=== PATIENT | male | born 1970 | race Caucasian/White ===

== ENCOUNTER 2016-10-13 08:23 | Emergency (ER) | payer OTHER ==
[~2016-10-13] VITALS: Ht 182.9 cm; Wt 102.0 kg
[~2016-10-13 08:23] MED LIST: CLIN1CAP5 PO; HYDR-3533 PO; IBUP800T23 PO; MAGICADU2 SWISH-SWAL
[2016-10-13 08:24] VITALS: BP 123/78; PULSE 68; RESP 24; TEMP 98; O2SAT 98
[2016-10-13 08:31] VITALS: BP 166/94; PULSE 74; RESP 18; TEMP 98.4; O2SAT 99
--- NOTE | 2016-10-13 08:40 | PD ---
HPI Chief Complaint: Flank/Kidney Pain Time Seen by Provider: 08:33 Travel History International Travel<30 days: No Contact w/Intl Traveler<30days: No Traveled to known affect area: No History of Present Illness HPI This is a 46-year-old male who presents to the emergency department with a history of bilateral obstructing kidney stones and stent placement over the summer, with right sided flank pain that's been progressing over the past 3 days. He said initially it felt like a twinge and then today when he went to work and started to be a sharp stabbing pain feeling like someone was stabbing him with an ice pick in the back, radiating to the right upper abdomen, constant , severe associated with nausea. He has not vomited. He says he feels flushed and some chills. He says he followed up with his urologist after his procedure but hasn't seen him since then. He says that over the past several days his urine has been increasingly bloody. PFSH Past Medical History Heart Rhythm Problems: No Cancer: No Cardiovascular Problems: No High Cholesterol: No Chest Pain: No Congestive Heart Failure: No Endocrine: No Gastrointestinal Disorders: No GERD: Yes Genitourinary: Yes (HX OF KIDNEY STONE 2007) Hepatitis: No Hiatal Hernia: No Hypertension: No Immune Disorder: No Kidney Stones: Yes Medical other: No Musculoskeletal: No Neurologic: No Psychiatric: No Reproductive: No Respiratory: No Seizures: No Ulcer: No ?: Not Past Surgical History Abdominal Surgery: No AICD: No Body Medical Devices: NONE Cardiac Surgery: No Ear Surgery: No Endocrine Surgery: No Eye Surgery: No Genitourinary Surgery: No Gynecologic Surgery: No Joint Replacement: No Neurologic Surgery: No Oral Surgery: No Pacemaker: No Thoracic Surgery: No Other Surgery: Yes (STENTS IN KIDNEY in march 2016) Social History Alcohol Use: Yes (on occasion) Tobacco Use: No Substance Use: Yes (admits to used to use drugs in youth) Allergies-Medications (Allergen,Severity, Reaction): Coded Allergies: Penicillin (Verified Allergy, Severe, 09/16/16) UNKNOWN REACTION Reported Meds & Prescriptions Reported Meds & Active Scripts Active Lortab (Hydrocodone-Acetaminophen) 5-325 Mg Tab 1 Tab PO Q6H PRN Ibuprofen 800 Mg Tab 800 Mg PO Q8H PRN Magic Mouthwash Adult Liq (Multi-Ingredient Mouthwash/Gargle) 120 Ml Susp 5 Ml SWISH-SWAL ACHS Each 5 mL contains: Nystatin 200,000 units, Diphenhydramine 4.25 mg, Viscous Lidocaine 10 mg, Pinedo syrup 0.8 mL Clindamycin (Clindamycin HCl) 150 Mg Cap 300 Mg PO Q6H 10 Days Review of Systems Except as stated in HPI: all other systems reviewed are Neg Physical Exam Narrative GENERAL: Uncomfortable appearing. SKIN: Warm and dry. HEAD: Atraumatic. Normocephalic. EYES: Pupils equal and round. No injection or drainage. ENT: Moist mucous membranes NECK: Trachea midline. CARDIOVASCULAR: Regular rate and rhythm. No murmur appreciated. RESPIRATORY: Clear to auscultation. Breath sounds equal bilaterally. GASTROINTESTINAL: Abdomen soft, non-tender, nondistended. : Right CVA tenderness. MUSCULOSKELETAL: No obvious deformities. NEUROLOGICAL: Awake and alert. No obvious cranial nerve deficits. Moving all extremities. PSYCHIATRIC: Appropriate mood and affect; insight and judgment normal. Data Data Last Documented VS Vital Signs Date Time Temp Pulse Resp B/P Pulse Ox O2 Delivery O2 Flow Rate FiO2 10/13/16 08:49 18 98 Room Air 10/13/16 08:34 71 10/13/16 08:31 98.4 166/94 Orders Basic Metabolic Panel (Bmp) (10/13/16 08:37) Complete Blood Count With Diff (10/13/16 08:37) Urinalysis - C+S If Indicated (10/13/16 08:37) Ct Abd/Pel W/O Iv Contrast (10/13/16 08:37) Iv Access Insert/Monitor (10/13/16 08:37) Ecg Monitoring (10/13/16 08:37) Oximetry (10/13/16 08:37) Sodium Chloride 0.9% Flush (Ns Flush) (10/13/16 08:45) Ketorolac Inj (Toradol Inj) (10/13/16 08:45) Hydromorphone Pf Inj (Dilaudid Pf Inj) (10/13/16 08:45) Ondansetron Inj (Zofran Inj) (10/13/16 08:45) Sodium Chlor 0.9% 1000 Ml Inj (Ns 1000 M (10/13/16 08:45) Urine Culture (10/13/16 08:50) Hydromorphone Pf Inj (Dilaudid Pf Inj) (10/13/16 10:00) Labs Laboratory Tests Test 10/13/16 10/13/16 08:40 08:50 Sodium Level 137 MEQ/L Potassium Level 4.3 MEQ/L Chloride Level 103 MEQ/L Carbon Dioxide Level 25.3 MEQ/L Anion Gap 9 MEQ/L Blood Urea Nitrogen 28 MG/DL Creatinine 1.26 MG/DL Estimat Glomerular Filtration 62 ML/MIN Rate Random Glucose 113 MG/DL Calcium Level 9.0 MG/DL White Blood Count 9.4 TH/MM3 Red Blood Count 5.24 MIL/MM3 Hemoglobin 15.2 GM/DL Hematocrit 45.1 % Mean Corpuscular Volume 86.0 FL Mean Corpuscular Hemoglobin 28.9 PG Mean Corpuscular Hemoglobin 33.7 % Concent Red Cell Distribution Width 14.3 % Platelet Count 200 TH/MM3 Mean Platelet Volume 11.0 FL Neutrophils (%) (Auto) 69.5 % Lymphocytes (%) (Auto) 19.0 % Monocytes (%) (Auto) 7.5 % Eosinophils (%) (Auto) 3.0 % Basophils (%) (Auto) 1.0 % Neutrophils # (Auto) 6.5 TH/MM3 Lymphocytes # (Auto) 1.8 TH/MM3 Monocytes # (Auto) 0.7 TH/MM3 Eosinophils # (Auto) 0.3 TH/MM3 Basophils # (Auto) 0.1 TH/MM3 CBC Comment DIFF FINAL Differential Comment Urine Color YELLOW Urine Turbidity HAZY Urine pH 6.0 Urine Specific [place] 1.020 Urine Protein 100 mg/dL Urine Glucose (UA) NEG mg/dL Urine Ketones NEG mg/dL Urine Occult Blood MOD Urine Nitrite NEG Urine Bilirubin NEG Urine Urobilinogen LESS THAN 2.0 MG/DL Urine Leukocyte Esterase LARGE Urine RBC /hpf Urine WBC 57 /hpf Urine Amorphous Sediment RARE Urine Bacteria RARE /hpf Urine Mucus FEW /lpf Microscopic Urinalysis Comment CULTURE INDICATED MDM Medical Decision Making Medical Screen Exam Complete: Yes Emergency Medical Condition: Yes Medical Record Reviewed: Yes (patient had bilateral ureteral stents placed in [place] [address] Howell) Interpretation(s) No leukocytosis Electrolytes are reassuring Urinalysis: Blood in the urine Differential Diagnosis Nephrolithiasis, pyelonephritis, obstructive uropathy, infected stone Narrative Course This is a 46-year-old male who presents to the emergency department with a history kidney stones and bilateral ureteral stents with increasing right sided flank pain. He was placed on a monitor and an IV was established. He was given IV hydration and pain control. CT was obtained which demonstrates persistent stents. I spoke to Dr. Howell to doesn't feel like there is any urologic emergency but does want the patient to follow-up in his office within 1 -2 weeks for further care. I explained this to the patient and he expressed understanding. Patient was discharged home. Diagnosis Primary Impression: Nephrolithiasis Referrals: Dwight Howell DO Patient Instructions: General Instructions Additional Instructions: If you develop fever, persistent vomiting, back pain, or inability to eat return to the emergency department as your urine infection may have progressed to a kidney infection. Follow-up with Dr. Howell without fail. Med/Other Pt SpecificInfo: Prescription(s) given Scripts Oxycodone-Acetaminophen (Percocet)5-325 mg Tab1-2 Tab PO Q4H PRN (PAIN) #30 TAB Ref 0 Prov:Marina Robertson MD 10/13/16 Disposition: 01 DISCHARGE HOME Condition: Stable Marina Robertson MD Oct 13, 2016 08:40
[2016-10-13] MEDS ORDERED: ONDANSETRON HCL 4 MG/2 ML VIAL IV ONE (08:45)
[2016-10-13] MEDS ORDERED: HYDROmorphone HCL PF 1 MG/ML VIAL IVS ONE (08:45)
[2016-10-13] MEDS ORDERED: KETOROLAC TROMETHAMINE 30 MG/ML (IVP) VIAL IVP ONE (08:45)
[2016-10-13] MEDS ORDERED: SODIUM CHLORIDE 0.9% FLUSH 5 ML FLUSH IVF PRN (08:45)
[2016-10-13] MEDS ORDERED: SODIUM CHLOR 0.9% 1000 ML INJ 1,000 ML IV SCH (08:45)
[2016-10-13 08:49] VITALS: RESP 18; O2SAT 98
[2016-10-13 09:07] LABS: AUTOMATED NEUTROPHIL # 6.5 TH/MM3 (1.8-7.7); BASOPHIL # 0.1 TH/MM3 (0-0.2); EOSINOPHIL # 0.3 TH/MM3 (0-0.4); HEMATOCRIT 45.1 % (39.0-51.0); HEMO FLAGS DIFF FINAL; LYMPHOCYTE # 1.8 TH/MM3 (1.0-4.8); MEAN CORPUSCULAR HEMOGLOBIN 28.9 PG (27.0-34.0); MEAN CORPUSCULAR HGB CONC 33.7 % (32.0-36.0); MONO % 7.5 % (0.0-8.0); NEUT % 69.5 % (16.0-70.0); PLATELET COUNT 200 TH/MM3 (150-450); RED BLOOD COUNT 5.24 MIL/MM3 (4.50-5.90); RED CELL DISTRIBUTION WIDTH 14.3 % (11.6-17.2); WHITE BLOOD COUNT 9.4 TH/MM3 (4.0-11.0)
[2016-10-13 09:18] LABS: BACTERIA, URINE RARE /hpf; BLOOD, URINE MOD (NEG); GLUCOSE,URINE NEG (NEG); KETONE, URINE NEG (NEG); MUCUS URINE FEW /lpf (OCC); NITRITE,URINE NEG (NEG); URINE COLOR YELLOW (YELLW/STRAW)
--- NOTE | 2016-10-13 09:29 | RADRPT ---
EXAM DATE/TIME: 10/13/2016 08:52 [facility] COMPARISON: CT ABDOMEN & PELVIS W/O CONTRAST, April 23, 2016, 19:28. INDICATIONS: Right flank pain. ORAL CONTRAST: No oral contrast ingested. RADIATION DOSE: 8.55 CTDIvol (mGy) MEDICAL HISTORY: Renal calculi. Gastroesophageal reflux disease. SURGICAL HISTORY: None. ENCOUNTER: Initial ACUITY: 2 days PAIN SCALE: 9/10 LOCATION: Right flank TECHNIQUE: Volumetric scanning of the abdomen and pelvis was performed. Using automated exposure control and ad justment of the mA and/or kV according to patient size, radiation dose was kept as low as reasonably achievable to obtain optimal diagnostic quality images. FINDINGS: Lungs bases are clear. Portion of the liver and spleen identified are free of focal defects. Bilateral double J stents are in place. Both collecting systems remain prominent in spite of the king nt. Calcifications are seen in both the right and left kidneys, unchanged. Double J stents are in good position in the bladder. CONCLUSION: 1. Double J stents in good position. 2. Bilateral renal calculi. 3. Parapevlic cyst. Kirby Chinchilla MD FACR on October 13, 2016 at 9:02 Board Certified Radiologist. This report was verified electronically.
[2016-10-13 09:34] LABS: COMMENT (UR) CULTURE INDICATED; CULTURE IF INDICATED CULTURE INDICATED
[2016-10-13 09:37] LABS: BICARBONATE 25.3 MEQ/L (21.0-32.0); POTASSIUM 4.3 MEQ/L (3.5-5.1)
[2016-10-13] MEDS ORDERED: HYDROmorphone HCL PF 1 MG/ML VIAL IV PUSH ONE (10:00)
[2016-10-13] MEDS ORDERED: PERC5TAB12 PO (10:39)
[2016-10-13 10:54] VITALS: BP 146/77; TEMP 98.6
[2016-10-22] MEDS ORDERED: PERC7.5T13 PO (11:07)
[2016-11-05] MEDS ORDERED: NORC5TAB PO (11:55)
[2016-11-05] MEDS ORDERED: LEVA500T PO (11:55)
[2016-12-08] MEDS ORDERED: PERC10TA27 PO (14:20)
[2016-12-08] MEDS ORDERED: OXYB5TAB10 PO (14:20)
[2017-01-13] MEDS ORDERED: MULTTAB67 PO (09:56)
== END 2016-10-13 10:45 | disposition home or self-care (01) ==
LOC: NEPE 08:23
DX: N20.0 Calculus of kidney (principal); R11.0 Nausea; K21.9 Gastro-esophageal reflux disease without esophagitis
CPT/HCPCS: 74176; 80048; 81001; 85025; 87086; 96374; 96375; 96376; 99284; J1170; J1885; J2405; J7030

== ENCOUNTER 2016-10-18 11:41 | Emergency (ER) | payer SELFPAY ==
[~2016-10-18] VITALS: Ht 182.9 cm; Wt 102.0 kg
[~2016-10-18 11:41] MED LIST changes: +PERC5TAB12 PO
[2016-10-18 11:43] VITALS: BP 128/94; PULSE 70; RESP 20; TEMP 98; O2SAT 97
[2016-10-18] MEDS ORDERED: ORPHENADRINE INJ 60 MG/2 ML AMP IM ONE (13:45)
[2016-10-18] MEDS ORDERED: KETOROLAC TROMETHAMINE 60 MG/2 ML (IM) VIAL IM ONE (13:45)
--- NOTE | 2016-10-18 13:45 | PD ---
HPI Chief Complaint: Pain: Acute or Chronic Time Seen by Provider: 13:40 Travel History International Travel<30 days: No Contact w/Intl Traveler<30days: No Traveled to known affect area: No History of Present Illness HPI Patient is a 46-year-old male presenting with back pain. He states approximately 2 hours prior to exam. He was at work when he twisted and bent and felt a popping sensation in his right lower back. It is sharp and worse with movement. It does not radiate. It is near the midline and around the lumbosacral area. Patient denies any flank or abdominal pain. He denies bowel or bladder dysfunction, saddle anesthesia and weakness or paresthesias in his lower extremities. He states that he has had intermittent back problems since July 2016 and has seen an orthopedist in follow-up, MRI has shown only muscle strains and no other acute injuries. He denies any trauma to the back however states that the pain was so severe he did "fall to the ground "it took him a moment or 2 to get back up. He was here 5 days prior for flank pain which was related to renal calculi and he an appointment this week with his urologist. He states that this has improved and that this pain is different and he does not believe it is related. Denies any urinary complaints. PFSH Past Medical History Heart Rhythm Problems: No Cancer: No Cardiovascular Problems: No High Cholesterol: No Chest Pain: No Congestive Heart Failure: No Endocrine: No Gastrointestinal Disorders: No GERD: Yes Genitourinary: Yes (HX OF KIDNEY STONE 2007) Hepatitis: No Hiatal Hernia: No Hypertension: No Immune Disorder: No Kidney Stones: Yes Musculoskeletal: No Neurologic: No Psychiatric: No Reproductive: No Respiratory: No Seizures: No Ulcer: No Past Surgical History Abdominal Surgery: No AICD: No Body Medical Devices: NONE Cardiac Surgery: No Ear Surgery: No Endocrine Surgery: No Eye Surgery: No Genitourinary Surgery: No Gynecologic Surgery: No Joint Replacement: No Neurologic Surgery: No Oral Surgery: No Pacemaker: No Thoracic Surgery: No Other Surgery: Yes (STENTS IN KIDNEY in march 2016) Social History Alcohol Use: Yes (on occasion) Tobacco Use: No Substance Use: Yes (admits to used to use drugs in youth) Allergies-Medications (Allergen,Severity, Reaction): Coded Allergies: Penicillin (Verified Allergy, Severe, 10/18/16) UNKNOWN REACTION Reported Meds & Prescriptions Reported Meds & Active Scripts Active Robaxin (Methocarbamol) 750 Mg Tab 750 Mg PO QID PRN 2 tabs QID for 2 days, then 1 tab QID thereafter Naproxen 500 Mg Tab 500 Mg PO BID Review of Systems Except as stated in HPI: all other systems reviewed are Neg Physical Exam Narrative GENERAL: Well-developed and well-nourished adult male in no acute distress. SKIN: Warm and dry. Good turgor without tenting. HEAD: Normocephalic and atraumatic. EYES: PERRL bilaterally, 5mm. EOMI bilaterally. No injection or icterus present. No proptosis. Lids without edema or erythema. NECK: Supple, no midline tenderness, crepitus or step-offs. Trachea midline, no JVD. No cervical or facial lymphadenopathy. CARDIOVASCULAR: Regular rate and rhythm without murmurs, rubs, clicks or gallops. Dorsalis pedis and posterior tibial pulses 2+ bilaterally. No pedal edema. RESPIRATORY: Clear to auscultation bilaterally with symmetrical rise and fall, no distress or use of accessory muscles. GASTROINTESTINAL: Non-tender, non-distended. Normal bowel sounds all 4 quadrants. No masses or organomegaly present. MUSCULOSKELETAL: Gross exam of the back reveals no edema or discoloration. Patient has tenderness to palpation of the mid to low lumbar region and the sacrum and right sacroiliac paraspinous muscles. There are no crepitus or step- offs. No pelvic instability or pain with pelvic rocking. Negative bilateral modified straight leg raise. Antalgic gait. Patient freely moving all four extremities spontaneously. Extremities without clubbing, cyanosis, or edema. No obvious deformities. NEUROLOGIC: CN II-XII grossly intact. Awake and alert. Sensation intact L1-S2 bilaterally. Strength 5/5 in hip flexion, hip extension, knee flexion, knee extension, plantar flexion, dorsiflexion, and great toe flexion and extension bilaterally. Bilateral patellar and Achilles DTRs 1+. Downgoing Babinskis bilaterally. Normal speech. PSYCHIATRIC: Appropriate mood and affect; insight and judgment normal. Data Data Last Documented VS Vital Signs Date Time Temp Pulse Resp B/P Pulse Ox O2 Delivery O2 Flow Rate FiO2 10/18/16 11:43 98.0 70 20 128/94 97 Room Air Orders Ketorolac Inj (Toradol Inj) (10/18/16 13:45) Orphenadrine Inj (Norflex Inj) (10/18/16 13:45) Spine, Lumbar - Ltd (Ap & Lat) (10/18/16 13:40) MDM Medical Decision Making Medical Screen Exam Complete: Yes Emergency Medical Condition: Yes Differential Diagnosis Lumbar strain versus muscle spasm versus SI dysfunction versus lumbar fracture Narrative Course The patient is a 46-year-old male who has had intermittent chronic back pain since 2016. 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 It is also tender over muscular regions but does have some bony tenderness, no crepitus, step-offs, edema or discoloration. He has no "red flag "symptoms and is neurovascularly intact. I believe this most likely represents a lumbar strain with spasm, patient given Toradol and Norflex and ordered x-ray of the lumbar spine. Of note he was seen here 5 days prior for renal calculi with stents in place. He states that that pain has resolved and this tight is different and he does not believe it is related. He denies any urinary problems. He has follow-up with his urologist this week. X-ray of the lumbar spine shows no acute fractures, subluxations. There are some chronic findings including the ureteral stents. Patient feeling somewhat improved. Will be discharged with anti-inflammatories and muscle relaxers, rest and follow -up with his orthopedist this week.See discharge paperwork for further instructions. The plan was discussed with the patient who acknowledged their understanding and agreement. Reinforced the follow-up with primary care is critically important. Patient instructed on emergent conditions that should prompt return to ED. Diagnosis Primary Impression: Low back strain Qualified Code: S39.012A - Low back strain, initial encounter Patient Instructions: General Instructions, Low Back Strain (ED) Additional Instructions: Rest for 24 hours, then gradually resume normal activity Avoid maneuvers or positions that aggravate the pain Avoid twisting/bending or lifting heavy items Take medications as prescribed Warm, moist heat applied to painful areas hourly as needed Try to massage and stretch affected muscles after applying heat to speed recovery Follow-up with your orthopedist on Thursday Return to ED for any acute worsening of symptoms Med/Other Pt SpecificInfo: Prescription(s) given Scripts Methocarbamol (Robaxin)750 Mg Ubi134 Mg PO QID PRN (MUSCLE SPASM) #40 TAB 2 tabs QID for 2 days, then 1 tab QID thereafter Prov:Jt Wesley MD 10/18/16 Naproxen 500 Mg Aop155 Mg PO BID #10 TAB Prov:Jt Wesley MD 10/18/16 Disposition: 01 DISCHARGE HOME Condition: Stable Dewayne Kenney III Oct 18, 2016 13:45
--- NOTE | 2016-10-18 14:40 | RADRPT ---
EXAM DATE/TIME: 10/18/2016 14:17 [facility] COMPARISON: No previous studies available for comparison. INDICATIONS : Pain since July, exaggerated 1 day ago. MEDICAL HISTORY : None. SURGICAL HISTORY : None. ENCOUNTER: Initial ACUITY: 2 months PAIN SCORE: 7/10 LOCATION: Lumbar spine. FINDINGS: 3 views of the lumbar spine demonstrate 5 bip-bal-pbowwtp lumbar vertebral bodies. No fracture or com pression deformity is present. There is no anterolisthesis or retrolisthesis. Endplate osteophytes ar e present at L2-L4. Disc heights are preserved. Bilateral ureteral stents are present and there are likely proximal ureteral stones bilaterally. CONCLUSION: 1. No significant lumbar spine abnormality is identified. 2. Bilateral ureteral stents are present with suspected proximal ureteral stones bilaterally. Dewayne Arce MD on October 18, 2016 at 14:38 Board Certified Radiologist. This report was verified electronically.
[2016-10-18] MEDS ORDERED: ROBA750T PO (14:45)
[2016-10-18] MEDS ORDERED: NAPR500T PO (14:45)
[2016-10-22] MEDS ORDERED: PERC7.5T13 PO (11:07)
[2016-11-05] MEDS ORDERED: LEVA500T PO (11:55)
[2016-11-05] MEDS ORDERED: NORC5TAB PO (11:55)
[2016-12-08] MEDS ORDERED: OXYB5TAB10 PO (14:20)
[2016-12-08] MEDS ORDERED: PERC10TA27 PO (14:20)
[2017-01-13] MEDS ORDERED: MULTTAB67 PO (09:56)
== END 2016-10-18 15:11 | disposition home or self-care (01) ==
LOC: NEPB 11:41
DX: S39.012A Strain of muscle, fascia and tendon of lower back, initial encounter (principal); X50.1XXA Overexertion from prolonged static or awkward postures, initial encounter; Y99.0 Civilian activity done for income or pay
CPT/HCPCS: 72100; 96372; 99283; J1885; J2360

== ENCOUNTER → 2016-11-05 | Day surgery (SDC) | payer OTHER ==
[~2016-11-05] VITALS: Ht 180.3 cm; Wt 106.4 kg
[~2016-11-05] MED LIST changes: +*morphine SULFATE 8 MG/ML PERIprocedure ONLY ONE; +ACETAMINOPHEN 1000 MG/100 ML VIAL IV ONE; +BELLADONNA ALKALOIDS/OPIUM 60 MG SUPP ONE; +CIPR-9 PO; -CLIN1CAP5 PO; +DEXAMETHASONE SOD PHOS 4 MG/ML VIAL ONE; +DO NOT ADM ANY ANTICOAGULANT DRUGS XX PRN; +FAMOTIDINE 20 MG/2 ML VIAL ONE; +HYDR-3366 PO; -HYDR-3533 PO; -IBUP800T23 PO; +INSULIN HUMAN REGULAR 1,000 UNITS/10 ML VIAL SQ PRN; +IOHEXOL 300 MG/ML 50 ML BTL (for RAD DIAG) OTHER ONE; +KETOROLAC TROMETHAMINE 30 MG/ML (IVP) VIAL ONE; +LACTATED RINGER'S 1000 ML IV SCH; +LEVA500T PO; +LEVOFLOXACIN 500 MG TAB PO ONE; -MAGICADU2 SWISH-SWAL; +METOPROLOL TARTRATE 25 MG TAB PO PRN; +MIDAZOLAM HCL 2 MG/2 ML VIAL ONE; +MULTTAB67 PO; +NORC5TAB PO; +ONDANSETRON HCL 4 MG/2 ML VIAL IV PUSH PRN; +ONDANSETRON HCL 4 MG/2 ML VIAL ONE; +OXYB5TAB10 PO; +PERC10TA27 PO; +PROPOFOL 200 MG/20 ML AMP IV ONE; +ROBA500T PO; +SODIUM CHLORID 0.9% 500 ML IV SCH; +fentaNYL CITRATE 250 MCG/5 ML AMP ONE; +oxyCODONE/ACETAMINOPHEN 5 MG/325 MG TAB PO PRN
[2016-11-05 06:27] VITALS: BP 135/77; PULSE 62; RESP 18; TEMP 98.4; O2SAT 96
--- NOTE | 2016-11-05 07:21 | RADRPT ---
EXAM DATE/TIME: 11/05/2016 06:43 [facility] COMPARISON: No previous studies available for comparison. INDICATIONS : Stones and stents. Pre-op. MEDICAL HISTORY : Kidney stones SURGICAL HISTORY : Bilateral stents ENCOUNTER: Initial ACUITY: 1 day PAIN SCORE: 7/10 LOCATION: Bilateral abdomen FINDINGS: Supine view of the abdomen was performed. The abdominal bowel gas pattern is normal. Bilateral doubl e-J ureteral catheters are identified. Large calcification overlying both proximal ureter. On the lef t calcification measures 8 x 12 mm. On the right it measures 8 x 4 mm . No abnormal masses, or orga nomegaly is seen. The osseous structures are unremarkable. CONCLUSION: Bilateral double-J ureteral catheters with bilateral proximal ureter calcifications as measured above Aaron Hawkins MD on November 05, 2016 at 7:18 Board Certified Radiologist. This report was verified electronically.
--- NOTE | 2016-11-05 11:53 | HHI.PR ---
Immediate Post Op Note Procedure Date: Nov 05, 2016 Pre Op Diagnosis: Bilateral renal calculi Post Op Diagnosis: Same Surgeon: Juancho Stockton Foundation Engineer(s): None Procedure: Cystoscopy, bilateral retrograde pyelograms, bilateral ureteral stent exchange and bilateral extracorporeal shockwave lithotripsy Findings: Bilateral renal calculi and retained urinary stents Additional Information: Indication for procedure: Case of a pleasant 46-year-old gentleman with a history of bilateral obstructing renal calculi who is status post placement of bilateral ureteral stents in March 2016. Patient presents today to have his bilateral ureteral stents exchanged and to undergo shockwave lithotripsy of the larger left sided renal calculus. Procedure in detail: Patient was brought to the operating room suite and placed supine on the lithotripsy table. He was next placed under general anesthesia. He was then repositioned in the dorsal lithotomy position and prepped and draped in normal sterile fashion. After appropriate timeout was undertaken I proceeded with cystoscopic evaluation utilizing the rigid cystoscope with the 20 Beninese sheath and 30 lens. The urethra was patent without stricture formation and the prostate was nonobstructing. Further passes of cystoscope within the urinary bladder revealed both distal aspects of the previously seen ureteral stents protruding from the ureteral orifices. Next the right stent was grasped with flexible forceps and an attempt was made to remove it. I was able to mobilize the stent several centimeters and met considerable resistance. A sensor 0.035 wire was advanced alongside the stent to stabilize the ureter. However the stent was unable to be further withdrawn nor was able to push it back up into the right kidney. I then focused my attention towards removing the left stent and once again had similar problems. However the able to pass a sensor wire up the left ureter and subsequently withdraw the left stent several centimeters however significant resistance was met that precluded removal. The patient was next taken out of dorsolithotomy position and placed in the supine position. I then proceeded with shockwave lithotripsy of the proximal loop of the left ureteral stent utilizing the Jaimes Piezolith 3000 device. 500 shocks were administered to the loop and then an additional 1000 shocks to the left stone which appeared adherent to the ureteral stent. Cystoscopy was then repeated utilizing the flexible cystoscope and this time I was able to grasp and remove the left stent without difficulty. The stent was carefully inspected to ascertain that no stone fragments were left behind. Subsequent to this shockwave lithotripsy was resumed and an additional 1500 shocks were administered to the left sided renal calculus. Next the focus of attention was towards the patient's right side. Since the right stent could not be removed and was now in poor position a decision was made to proceed with shockwave lithotripsy of the proximal loop of the right stent and right renal calculus which appeared adherent to the stent. The patient once again received 1500 shocks to both the stone and the loop and flexible cystoscopy was repeated. Once again I was successful in removing the right sided ureteral stent which was carefully inspected to ascertain that no stent fragments were left behind. Subsequent to this additional 1500 shocks to the right stone was administered with the shockwave lithotripsy machine. This concluded the shockwave lithotripsy portion of the case and both renal stones still remained intact although somewhat risk consultant in intensity. The patient was then once again repositioned in the dorsolithotomy position and reprepped and draped. I then proceeded with placement of bilateral terminal operations supervisor ureteral stents as follows. The previously pass guidewires were still in place and I proceeded to back loaded the cystoscope over the wire utilizing a 5 Beninese open-ended catheter. The catheter was then advanced proximal two th[address] way up the patient's right ureter and the guidewire withdrawn. A right retrograde pyelogram study was performed to outline the collecting system. Next.an open-ended catheter was exchanged for a halfway 6 Beninese 26 cm double-J stent. The stent was passed under both cystoscopic and fluoroscopic guidance without difficulty. The contralateral side was then accomplished in similar fashion and once again a 6 Beninese 26 cm halfway stent was placed. The bladder was explained of all irrigant fluid and a 16 Beninese 10 cc Ordonez catheter was placed and connected to gravity drainage. The patient tolerated the procedures without complications and was transferred to the PACU in satisfactory condition. Complications: None Specimen(s) removed: Bilateral ureteral stents which were discarded Estimated blood loss: Minimal Anesthesia: General Drains: None Fluids: refer to anesthesia record Patient to: PACU Patient Condition: Good Date/Time of Procedure: SEE SURGICAL CARE RECORD Juancho Stockton MD Nov 05, 2016 11:53
[2016-11-05 13:45] VITALS: BP 147/68; PULSE 76; RESP 18; TEMP 97.8; O2SAT 98
== END | disposition home or self-care (01) ==
LOC: HSDC 05:29
PROVIDERS: ATTEND Urology
DX: N20.0 Calculus of kidney (principal)
CPT/HCPCS: 00918; 50590; 52332; 74000; C1769; J0131; J1100; J1885; J2250; J2270; J2405; J3010; J7120; Q9967

== ENCOUNTER 2016-12-04 10:09 | Emergency (ER) | payer OTHER ==
[~2016-12-04] VITALS: Ht 182.9 cm; Wt 90.0 kg
[~2016-12-04 10:09] MED LIST changes: -*morphine SULFATE 8 MG/ML PERIprocedure ONLY ONE; -ACETAMINOPHEN 1000 MG/100 ML VIAL IV ONE; -BELLADONNA ALKALOIDS/OPIUM 60 MG SUPP ONE; -CIPR-9 PO; -DEXAMETHASONE SOD PHOS 4 MG/ML VIAL ONE; -DO NOT ADM ANY ANTICOAGULANT DRUGS XX PRN; -FAMOTIDINE 20 MG/2 ML VIAL ONE; -HYDR-3366 PO; -INSULIN HUMAN REGULAR 1,000 UNITS/10 ML VIAL SQ PRN; -IOHEXOL 300 MG/ML 50 ML BTL (for RAD DIAG) OTHER ONE; -KETOROLAC TROMETHAMINE 30 MG/ML (IVP) VIAL ONE; -LACTATED RINGER'S 1000 ML IV SCH; -LEVOFLOXACIN 500 MG TAB PO ONE; -METOPROLOL TARTRATE 25 MG TAB PO PRN; -MIDAZOLAM HCL 2 MG/2 ML VIAL ONE; -MULTTAB67 PO; -ONDANSETRON HCL 4 MG/2 ML VIAL IV PUSH PRN; -ONDANSETRON HCL 4 MG/2 ML VIAL ONE; -OXYB5TAB10 PO; -PERC10TA27 PO; -PERC5TAB12 PO; -PROPOFOL 200 MG/20 ML AMP IV ONE; -ROBA500T PO; -SODIUM CHLORID 0.9% 500 ML IV SCH; -fentaNYL CITRATE 250 MCG/5 ML AMP ONE; -oxyCODONE/ACETAMINOPHEN 5 MG/325 MG TAB PO PRN
[2016-12-04 10:11] VITALS: BP 171/91; PULSE 76; RESP 18; TEMP 97.9; O2SAT 97
[2016-12-04 10:22] VITALS: BP 139/87; PULSE 75; RESP 20; TEMP 97.8
--- NOTE | 2016-12-04 10:56 | PD ---
HPI Chief Complaint: Flank/Kidney Pain Time Seen by Provider: 10:40 Travel History International Travel<30 days: No Contact w/Intl Traveler<30days: No Traveled to known affect area: No History of Present Illness HPI This patient complains of left flank pain. Duration 3 days. He says he has a temp of 100 at home. He had some hematuria. He has chronic indwelling ureteral stents. They were exchanged one month month ago by his urologist Dr. Stockton. Severity of symptoms is moderate. No alleviating factors. PFSH Past Medical History Heart Rhythm Problems: No Cancer: No Cardiovascular Problems: No High Cholesterol: No Chest Pain: No Congestive Heart Failure: No Endocrine: No Gastrointestinal Disorders: No GERD: Yes Genitourinary: Yes (HX OF KIDNEY STONE 2007) Hepatitis: No Hiatal Hernia: No Hypertension: No Immune Disorder: No Kidney Stones: Yes Musculoskeletal: No Neurologic: No Psychiatric: No Reproductive: No Respiratory: No Seizures: No Ulcer: No Tetanus Vaccination: < 5 Years Influenza Vaccination: Yes Past Surgical History Abdominal Surgery: No AICD: No Body Medical Devices: STENT SOM KIDNEYS Cardiac Surgery: No Ear Surgery: No Endocrine Surgery: No Eye Surgery: No Genitourinary Surgery: No Gynecologic Surgery: No Joint Replacement: No Neurologic Surgery: No Oral Surgery: No Pacemaker: No Thoracic Surgery: No Other Surgery: Yes (STENTS IN SOM KIDNEYS in february 2016) Social History Alcohol Use: Yes Tobacco Use: Yes (OCC) Substance Use: No (admits to used to use drugs in youth) Allergies-Medications (Allergen,Severity, Reaction): Coded Allergies: Penicillin (Verified Allergy, Severe, 12/04/16) UNKNOWN REACTION Reported Meds & Prescriptions Reported Meds & Active Scripts Active Review of Systems General / Constitutional: Positive: Fever Eyes: No: Visual changes HENT: No: Headaches Cardiovascular: No: Chest Pain or Discomfort Respiratory: No: Shortness of Breath Gastrointestinal: Positive: Nausea, No: Abdominal Pain Genitourinary: Positive: Hematuria, Flank Pain, No: Dysuria Musculoskeletal: No: Pain Skin: No Rash Neurologic: No: Weakness Psychiatric: No: Depression Endocrine: No: Polydipsia Hematologic/Lymphatic: No: Easy Bruising Physical Exam Narrative GENERAL: Well-nourished, well-developed patient in no apparent distress. SKIN: Warm and dry. HEAD: Atraumatic. Normocephalic. EYES: Pupils equal and round. No scleral icterus. No injection or drainage. ENT: No nasal bleeding or discharge. Mucous membranes pink and moist. NECK: Trachea midline. No JVD. CARDIOVASCULAR: Regular rate and rhythm. No murmur appreciated. RESPIRATORY: No accessory muscle use. Clear to auscultation. Breath sounds equal bilaterally. GASTROINTESTINAL: Abdomen soft, non-tender, nondistended. Hepatic and splenic margins not palpable. MUSCULOSKELETAL: No obvious deformities. No clubbing. No cyanosis. No edema. NEUROLOGICAL: Awake and alert. No obvious cranial nerve deficits. Motor grossly within normal limits. Normal speech. PSYCHIATRIC: Appropriate mood and affect; insight and judgment normal. Data Data Last Documented VS Vital Signs Date Time Temp Pulse Resp B/P Pulse Ox O2 Delivery O2 Flow Rate FiO2 12/04/16 10:22 97.8 75 20 139/87 12/04/16 10:11 97 Orders Complete Blood Count With Diff (12/04/16 10:46) Basic Metabolic Panel (Bmp) (12/04/16 10:46) Urinalysis - C+S If Indicated (12/04/16 10:46) Iv Access Insert/Monitor (12/04/16 10:46) Sodium Chloride 0.9% Flush (Ns Flush) (12/04/16 11:00) Abdomen, Kub Only (12/04/16 ) Urine Culture (12/04/16 12:40) Ondansetron Inj (Zofran Inj) (12/04/16 13:45) Morphine Inj (Morphine Inj) (12/04/16 13:45) Labs Laboratory Tests Test 12/04/16 12/04/16 11:40 12:40 White Blood Count 9.6 TH/MM3 Red Blood Count 5.12 MIL/MM3 Hemoglobin 14.9 GM/DL Hematocrit 43.1 % Mean Corpuscular Volume 84.3 FL Mean Corpuscular Hemoglobin 29.1 PG Mean Corpuscular Hemoglobin 34.6 % Concent Red Cell Distribution Width 12.5 % Platelet Count 188 TH/MM3 Mean Platelet Volume 10.3 FL Neutrophils (%) (Auto) 65.3 % Lymphocytes (%) (Auto) 23.4 % Monocytes (%) (Auto) 9.0 % Eosinophils (%) (Auto) 1.3 % Basophils (%) (Auto) 1.0 % Neutrophils # (Auto) 6.3 TH/MM3 Lymphocytes # (Auto) 2.2 TH/MM3 Monocytes # (Auto) 0.9 TH/MM3 Eosinophils # (Auto) 0.1 TH/MM3 Basophils # (Auto) 0.1 TH/MM3 CBC Comment DIFF FINAL Differential Comment Sodium Level 141 MEQ/L Potassium Level 4.8 MEQ/L Chloride Level 106 MEQ/L Carbon Dioxide Level 24.7 MEQ/L Anion Gap 10 MEQ/L Blood Urea Nitrogen 17 MG/DL Creatinine 1.03 MG/DL Estimat Glomerular Filtration 78 ML/MIN Rate Random Glucose 103 MG/DL Calcium Level 9.1 MG/DL Urine Color YELLOW Urine Turbidity HAZY Urine pH 6.0 Urine Specific [place] 1.016 Urine Protein 30 mg/dL Urine Glucose (UA) NEG mg/dL Urine Ketones NEG mg/dL Urine Occult Blood MOD Urine Nitrite NEG Urine Bilirubin NEG Urine Urobilinogen LESS THAN 2.0 MG/DL Urine Leukocyte Esterase MOD Urine RBC /hpf Urine WBC 22 /hpf Urine Amorphous Sediment FEW Urine Mucus FEW /lpf Urine Yeast (Budding) RARE Microscopic Urinalysis Comment CULTURE INDICATED MDM Medical Decision Making Medical Screen Exam Complete: Yes Emergency Medical Condition: Yes Medical Record Reviewed: Yes Differential Diagnosis Kidney stone, UTI, pyelonephritis Narrative Course I have reviewed the patient's electronic medical record. Reviewed Dr. Stockton' s note from one month ago when stent exchange was done IV placed CBC is normal Metabolic profile is normal Urinalysis shows innumerable red cells and will be cultured, there are 22 white cells Urinalysis not suspicious for infection but will be cultured Given his reported fever and chronic urologic trouble an indwelling stent I've given him a course of Cipro but he does not look septic or toxic and has no fever here and no leukocytosis I reviewed his KUB x-ray which shows bilateral ureteral stents in position with similar stone findings as prior I gave him a dose of morphine and Zofran for symptom relief Stable for outpatient follow-up, has urologist appointment in 3 days Diagnosis Primary Impression: Left flank pain Additional Impressions: Hematuria Fever Qualified Code: R50.9 - Fever, unspecified fever cause Additional Instructions: The patient was advised to follow up with urologist. The patient was warned about potential sedation for the medications they will receive on prescription. Med/Other Pt SpecificInfo: Prescription(s) given Scripts Oxycodone-Acetaminophen (Percocet)5-325 mg Tab1 Tab PO Q6H PRN (PAIN) #20 TAB Ref 0 Prov:Winston Crawley MD 12/04/16 Ciprofloxacin (Cipro)500 Mg Lah278 Mg PO BID #10 TAB Ref 0 Prov:Winston Crawley MD 12/04/16 Disposition: 01 DISCHARGE HOME Condition: Stable Winston Crawley MD Dec 04, 2016 10:56
[2016-12-04] MEDS ORDERED: SODIUM CHLORIDE 0.9% FLUSH 5 ML FLUSH IVF PRN (11:00)
--- NOTE | 2016-12-04 11:17 | RADRPT ---
EXAM DATE/TIME: 12/04/2016 11:04 [facility] COMPARISON: No previous studies available for comparison. INDICATIONS : Patient has pain on left side that started Thursday. MEDICAL HISTORY : None. SURGICAL HISTORY : Renal stents. ENCOUNTER: Initial ACUITY: 4 - 6 days PAIN SCORE: 9/10 LOCATION: Left Kidney. FINDINGS: There is an approximately 6 mm calculus overlying the proximal right ureteral stent and a larger calc ulus overlying the proximal left ureteral stent measuring up to 1.4 cm in diameter. Multiple small st one fragments are present in the lower pole left kidney. Calcifications in the pelvis are probably va scular. No acute bony abnormalities. CONCLUSION: 1. Bilateral calculi overlying the proximal ureteral stent similar to prior study with multiple small calculi overlying the lower pole left kidney. Bird Parker MD on December 04, 2016 at 11:11 Board Certified Radiologist. This report was verified electronically.
[2016-12-04 12:09] LABS: AUTOMATED NEUTROPHIL # 6.3 TH/MM3 (1.8-7.7); BASOPHIL # 0.1 TH/MM3 (0-0.2); EOSINOPHIL # 0.1 TH/MM3 (0-0.4); EOSINOPHIL % 1.3 % (0.0-4.0); HEMATOCRIT 43.1 % (39.0-51.0); HEMO FLAGS DIFF FINAL; LYMPH % 23.4 % (9.0-44.0); LYMPHOCYTE # 2.2 TH/MM3 (1.0-4.8); MEAN CELL VOLUME 84.3 FL (80.0-100.0); MEAN CORPUSCULAR HEMOGLOBIN 29.1 PG (27.0-34.0); MEAN CORPUSCULAR HGB CONC 34.6 % (32.0-36.0); NEUT % 65.3 % (16.0-70.0); PLATELET COUNT 188 TH/MM3 (150-450); RED BLOOD COUNT 5.12 MIL/MM3 (4.50-5.90); RED CELL DISTRIBUTION WIDTH 12.5 % (11.6-17.2); WHITE BLOOD COUNT 9.6 TH/MM3 (4.0-11.0)
[2016-12-04 12:34] LABS: BICARBONATE 24.7 MEQ/L (21.0-32.0); POTASSIUM 4.8 MEQ/L (3.5-5.1)
[2016-12-04 13:21] LABS: BLOOD, URINE MOD (NEG); COMMENT (UR) CULTURE INDICATED; CULTURE IF INDICATED CULTURE INDICATED; GLUCOSE,URINE NEG (NEG); KETONE, URINE NEG (NEG); MUCUS URINE FEW /lpf (OCC); NITRITE,URINE NEG (NEG); URINE COLOR YELLOW (YELLW/STRAW)
[2016-12-04] MEDS ORDERED: ONDANSETRON HCL 4 MG/2 ML VIAL IV ONE (13:45)
[2016-12-04] MEDS ORDERED: MORPHINE SULFATE 4 MG/ML INJ IV PUSH ONE (13:45)
[2016-12-04] MEDS ORDERED: PERC5TAB12 PO (13:45)
[2016-12-04] MEDS ORDERED: CIPR-9 PO (13:45)
[2016-12-04 14:07] VITALS: BP 138/85; TEMP 98.2
[2016-12-08] MEDS ORDERED: PERC10TA27 PO (14:20)
[2016-12-08] MEDS ORDERED: OXYB5TAB10 PO (14:20)
[2017-01-13] MEDS ORDERED: MULTTAB67 PO (09:56)
== END 2016-12-04 15:04 | disposition home or self-care (01) ==
LOC: NEPE 10:09
DX: R10.84 Generalized abdominal pain (principal); R50.9 Fever, unspecified; R31.9 Hematuria, unspecified; Z87.442 Personal history of urinary calculi
CPT/HCPCS: 74000; 80048; 81001; 85025; 87086; 96374; 96375; 99284; J2270; J2405

== ENCOUNTER → 2016-12-10 | Day surgery (SDC) | payer OTHER ==
[~2016-12-10] VITALS: Ht 182.9 cm; Wt 107.9 kg
[~2016-12-10] MED LIST changes: +*morphine SULFATE 8 MG/ML PERIprocedure ONLY ONE; +ACETAMINOPHEN 1000 MG/100 ML VIAL IV ONE; +CIPROFLOXACIN 400 MG PREMIX 200 ML IV SCH; +DEXAMETHASONE SOD PHOS 4 MG/ML VIAL ONE; +DO NOT ADM ANY ANTICOAGULANT DRUGS XX PRN; +FAMOTIDINE 20 MG/2 ML VIAL ONE; +HYDR-3366 PO; +INSULIN HUMAN REGULAR 1,000 UNITS/10 ML VIAL SQ PRN; +LACTATED RINGER'S 1000 ML IV SCH; -LEVA500T PO; +METOPROLOL TARTRATE 25 MG TAB PO PRN; +MIDAZOLAM HCL 2 MG/2 ML VIAL ONE; +MORPHINE SULFATE 4 MG/ML INJ IV PRN; +MULTTAB67 PO; -NORC5TAB PO; +ONDANSETRON HCL 4 MG/2 ML VIAL IV PUSH PRN; +OXYB5TAB10 PO; +PERC10TA27 PO; +PROPOFOL 200 MG/20 ML AMP IV ONE; +ROBA500T PO; +SODIUM CHLORID 0.9% 500 ML IV SCH; +fentaNYL CITRATE 250 MCG/5 ML AMP ONE; +oxyCODONE/ACETAMINOPHEN 5 MG/325 MG TAB ONE; +oxyCODONE/ACETAMINOPHEN 7.5 MG/325 MG TAB PO PRN
--- NOTE | 2016-12-10 07:04 | RADRPT ---
EXAM DATE/TIME: 12/10/2016 05:55 [facility] COMPARISON: ABDOMEN KUB ONLY, December 04, 2016, 11:04. INDICATIONS : Kidney stone. MEDICAL HISTORY : None. SURGICAL HISTORY : None. ENCOUNTER: Initial ACUITY: 1 day PAIN SCORE: 0/10 LOCATION: Bilateral Abdomen FINDINGS: There is an approximate 1.3 cm stone adjacent to the left proximal stents within the left proximal ur eter with 2 separate approximately 4-5 mm stones adjacent to the right proximal ureteral stent. Multi ple stones are present in the left kidney. The rest of the examination has not significantly changed. CONCLUSION: No change in bilateral ureteral stones and left renal stone. Benjamin Rojas MD on December 10, 2016 at 7:01 Board Certified Radiologist. This report was verified electronically.
[2016-12-10 07:26] VITALS: BP 139/81; PULSE 54; RESP 20; TEMP 98.2; O2SAT 97
--- NOTE | 2016-12-10 10:11 | PD.OP ---
Operative Report Date of Surgery: Dec 10, 2016 Preoperative Diagnosis: Left Ureteral stone Postoperative Diagnosis: Same Procedure: Left extracorporeal shockwave lithotripsy Anesthesia: TIVA Surgeon: Dwight Howell Transcript Evaluator(s): none Operation and Findings: Roldan Toledo is a 46-year-old male with history of bilateral renal calculi. He is undergone ESWL therapy in the past. He has a 1.4 proximal left ureteral stone with a few lower pole stones in the left side and a right ureteral stone. He is here today to undergo left extracorporeal shockwave lithotripsy of the 1.4 ureteral stone. Risk and benefits were discussed and he was willing to proceed. Patient was brought to the operating identified by myself as Roldan Toledo. He is placed on the operating room table in the supine position. He received preprocedure antibiotics until anesthesia was administered. Under fluoroscopic imaging guidance the left ureter stone was identified and ESWL therapy commenced. A Shiley power level of 8 with a rate of 60 was utilized and the power rate was slowly increased up to 20. The rate stayed at 60 for the first 1500 shocks. The rate then increased to 120 for the remaining 1500 shocks. Minimal fragmentation the stone was visualized under fluoroscopic imaging. He tolerated the procedure well was awoken and transferred to [place] stable condition. He'll follow-up in 2 weeks and at that time we'll determine if further treatment is necessary. Dwight Howell DO Dec 10, 2016 10:11
[2016-12-10 11:30] VITALS: BP 137/86; PULSE 48; RESP 17; TEMP 98; O2SAT 98
== END | disposition home or self-care (01) ==
LOC: HSDC 06:20
PROVIDERS: ATTEND Urology
DX: N20.2 Calculus of kidney with calculus of ureter (principal)
CPT/HCPCS: 00873; 50590; 74000; J0131; J0744; J1100; J2250; J2270; J3010; J7120

== ENCOUNTER → 2017-01-14 | Day surgery (SDC) | payer OTHER ==
[~2017-01-14] VITALS: Ht 180.3 cm; Wt 107.6 kg
[~2017-01-14] MED LIST changes: -*morphine SULFATE 8 MG/ML PERIprocedure ONLY ONE; +CHLORHEXIDINE GLUCONATE 2 % 1 PACK (2 CLOTHS) TOPICAL PRN; -CIPROFLOXACIN 400 MG PREMIX 200 ML IV SCH; -DEXAMETHASONE SOD PHOS 4 MG/ML VIAL ONE; -DO NOT ADM ANY ANTICOAGULANT DRUGS XX PRN; -FAMOTIDINE 20 MG/2 ML VIAL ONE; +KETAMINE HCL 500 MG/5 ML VIAL ONE; +LACTATED RINGER'S 1000 ML IV PRN; -LACTATED RINGER'S 1000 ML IV SCH; +MORPHINE SULFATE 4 MG/ML INJ ONE; +POVIDONE IODINE 5% (ANTISEPSIS KIT) 4 APPLICATIONS EACH NARE PRN; +SODIUM CHLORID 0.9% 500 ML IV PRN; -SODIUM CHLORID 0.9% 500 ML IV SCH; +VANCOMYCIN HCL 1000 MG ON-CALL/NS 250 ML IV SCH; +diphenhydrAMINE HCL 50 MG/ML VIAL ONE; -fentaNYL CITRATE 250 MCG/5 ML AMP ONE; +oxyCODONE/ACETAMINOPHEN 10 MG/325 MG TAB PO PRN; -oxyCODONE/ACETAMINOPHEN 5 MG/325 MG TAB ONE; -oxyCODONE/ACETAMINOPHEN 7.5 MG/325 MG TAB PO PRN
[2017-01-14 06:30] VITALS: BP 128/72; PULSE 97; RESP 16; TEMP 98.5; O2SAT 97
--- NOTE | 2017-01-14 06:33 | RADRPT ---
EXAM DATE/TIME: 01/14/2017 06:04 [facility] COMPARISON: ABDOMEN KUB ONLY, December 10, 2016, 5:55. ABDOMEN KUB ONLY, December 04, 2016, 11:04. ABDOMEN KUB ONLY, November 05, 2016, 6:43. INDICATIONS : Left side kidney stones, pre op lithotripsy. MEDICAL HISTORY : Renal calculi. SURGICAL HISTORY : bilateral ureteral stents ENCOUNTER: Initial ACUITY: 3 months PAIN SCORE: 8/10 LOCATION: Left flank FINDINGS: Supine view of the abdomen was performed. The patient has bilateral double-J ureteral catheters in g ood position. 9 mm calcification overlying the proximal left ureter. 6 mm ossification overlies the u pper upper ureter on the right . The abdominal bowel gas pattern is normal. No abnormal masses, or organomegaly is seen. The osseous structures are unremarkable. CONCLUSION: Bilateral ureteral calcifications with double-J ureteral stents. Aaron Hawkins MD on January 14, 2017 at 6:31 Board Certified Radiologist. This report was verified electronically.
[2017-01-14 06:46] LABS: AUTOMATED NEUTROPHIL # 5.5 TH/MM3 (1.8-7.7); BASOPHIL # 0.1 TH/MM3 (0-0.2); BASOPHIL % 0.9 % (0.0-2.0); EOSINOPHIL # 0.3 TH/MM3 (0-0.4); HEMATOCRIT 40.4 % (39.0-51.0); HEMO FLAGS DIFF FINAL; LYMPH % 23.9 % (9.0-44.0); LYMPHOCYTE # 2.1 TH/MM3 (1.0-4.8); MEAN CELL VOLUME 84.6 FL (80.0-100.0); MEAN CORPUSCULAR HEMOGLOBIN 28.3 PG (27.0-34.0); MEAN CORPUSCULAR HGB CONC 33.4 % (32.0-36.0); NEUT % 62.2 % (16.0-70.0); PLATELET COUNT 176 TH/MM3 (150-450); RED BLOOD COUNT 4.78 MIL/MM3 (4.50-5.90); RED CELL DISTRIBUTION WIDTH 12.5 % (11.6-17.2); WHITE BLOOD COUNT 8.9 TH/MM3 (4.0-11.0)
--- NOTE | 2017-01-14 08:53 | PD.OP ---
Operative Report Date of Surgery: Jan 14, 2017 Preoperative Diagnosis: Left Ureteral stone 9mm in size Postoperative Diagnosis: Same Procedure: Left extraportal shockwave lithotripsy Anesthesia: TIVA Surgeon: Dwight Howell Rug Dyer(s): None Resident Surgeon: None Operation and Findings: 46-year-old male with history of bilateral renal calculi. He is undergone ESWL therapy in the past. Presently he is a 9 mm stone in the proximal left ureter and a 5 mm stone in the proximal right ureter. Decision was made to bring the patient to the operating room to undergo left extraportal shockwave lithotripsy of his non-millimeter proximal ureteral stone. Risk and benefits were discussed and he was willing to proceed. The patient was brought to the operating room and identified myself as Roldan Toledo. He was placed on the operating table in the supine position. He received preprocedure antibiotics and TIVA anesthesia was administered. The patient received 3000 shocks in total. Initially, the first 2000 shocks were at a rate of 60 and then the remaining 1000 shocks were rate of 120. Minimal fragmentation the stone was visualized under fluoroscopic imaging. He will follow-up in 2 weeks and we'll obtain a KUB x-ray prior. If the stone is still present, he will need to undergo left ureteroscopy with laser lithotripsy and stone extraction. He tolerated procedure well and was awoken and transferred to remove stable condition. Dwight Howell DO Jan 14, 2017 08:53
[2017-01-14 10:00] VITALS: BP 127/77; PULSE 67; RESP 18; TEMP 97.9; O2SAT 98
== END | disposition home or self-care (01) ==
LOC: HSDC 05:39
PROVIDERS: ATTEND Urology
DX: N20.1 Calculus of ureter (principal)
CPT/HCPCS: 00873; 50590; 74000; 85025; J0131; J1200; J2250; J2270; J3010; J3370; J7050; J7120

== ENCOUNTER → 2017-02-05 | Day surgery (SDC) | payer OTHER ==
[~2017-02-05] VITALS: Ht 182.9 cm; Wt 106.8 kg
[~2017-02-05] MED LIST changes: +*HYDROmorphone PF 1 MG VIAL PERIprocedural Use ONLY ONE; +*RESP: ALBUTEROL 2.5 MG/3 ML NEB (PRN) PERIprocedural Use ONLY NEB ONE; +*morphine SULFATE 8 MG/ML PERIprocedure ONLY ONE; -ACETAMINOPHEN 1000 MG/100 ML VIAL IV ONE; +BELLADONNA ALKALOIDS/OPIUM 60 MG SUPP RECTAL ONE; +DEXAMETHASONE SOD PHOS 4 MG/ML VIAL ONE; +FAMOTIDINE 20 MG/2 ML VIAL ONE; +FUROSEMIDE 40 MG/4 ML VIAL IV PUSH ONE; +FUROSEMIDE 40 MG/4 ML VIAL ONE; +GENTAMICIN INJ 240 MG in SODIUM CHLORIDE 0.9% INJ 100 ML IV SCH; +HYDROmorphone HCL PF 2 MG/ML VIAL IV PRN; +IOHEXOL 350 MG/ML 50 ML BTL (for RAD DIAG) ONE; -KETAMINE HCL 500 MG/5 ML VIAL ONE; +LACTATED RINGER'S 1000 ML INJ 3,000 ML IV ONE; -MORPHINE SULFATE 4 MG/ML INJ IV PRN; -MORPHINE SULFATE 4 MG/ML INJ ONE; +NEOSTIGMINE 3 MG/3 ML SYR IV ONE; +ONDANSETRON HCL 4 MG/2 ML VIAL IV PUSH ONE; -VANCOMYCIN HCL 1000 MG ON-CALL/NS 250 ML IV SCH; +ceFAZolin 1,000 MG/NS 100 ML IV SCH; -diphenhydrAMINE HCL 50 MG/ML VIAL ONE; +fentaNYL CITRATE 250 MCG/5 ML AMP ONE
[2017-02-05 08:26] VITALS: BP 140/81; PULSE 54; RESP 20; TEMP 98.8; O2SAT 97
--- NOTE | 2017-02-05 15:09 | PD.OP ---
Operative Report Date of Surgery: February 05, 2017 Preoperative Diagnosis: Bilateral renal and left ureteral calculi Postoperative Diagnosis: Same Procedure: Cystoscopy, right retrograde study, right ureteroscopy with laser lithotripsy, stone extraction, right double-J stent exchange Left ureteroscopy with laser lithotripsy of left ureteral and renal calculi, left retrograde study, left double-J stent exchange Anesthesia: OSVALDO Surgeon: Dwight Howell Sports Medicine Specialist(s): None Resident Surgeon: None Operation and Findings: Patient was brought to operating room identify myself as Roldan Toledo. His placement dorsal lithotomy position, prepped and draped in usual sterile fashion , received preprocedure antibiotics, and general endotracheal tube anesthesia was administered. Patient with long history of bilateral renal and left ureteral calculi he is undergone extraportal shockwave lithotripsy in the past. Decision was made to bring the patient to the operating room to undergo bilateral ureteroscopy laser lithotripsy with stent exchanges. Risk and benefits were discussed preoperatively and he was willing to proceed. 20 Scottish scope was inserted the bladder and the right ureteral stent was identified. The alligator grasper was used to bring the stent out to the urethral meatus. A 0.35 sensor wire was then passed through the stent with a good curl in the kidney. The flexible ureteroscope was then passed up into the kidney and the stone was identified it was fragmented up with a 200 laser fiber setting of 10 and 1200. Good fragmentation of the stone was noted and then using the Nitinol basket the stone fragments were then removed. A 5 Scottish opening catheter was inserted into the distal right ureteral orifice and retrograde study was performed demonstrating good filling of the ureter and collecting system and a 6 Scottish 26 cm was placed with a good curl in the kidney negative, bladder. Attention was then directed to the left double-J stent. The alligator grasper was used to bring the stent out to the urethral meatus. A 0.35 sensor wire was then passed through the stent however would not go due to encrustation. The stent was removed and the cystoscope was reinserted into the bladder. Open- ended catheter was inserted into the distal left ureteral orifice followed by the 0.35 sensor wire. Wire would not pass entirely up the left ureter due to an impacted stone at the left proximal ureter. I left the wire in its position and removed the open-ended catheter. The rigid ureteroscope was then passed up to the area of where the proximal ureteral stone was. Fragments were present and these were retrieved with a nitinol basket. The stone was then lasered using the micron laser fiber and fragmentation occurred. This was difficult as the stone was impacted. Stone fragments were retrieved with a nitinol basket. Further stone fragments were identified within the kidney and these were also lasered and then removed. Retrograde study was performed demonstrating no residual filling defects but there was some narrowing at the area of where the stone was impacted in the proximal ureter. A 0.35 sensor wire was passed up into the kidney with a good curl and then a 6 Scottish 26 cm left double-J stent was left with a good curl in the kidney and a good curl in the bladder. The bladder was evacuated and he was awoken and transferred to recovery room in stable condition. Dwight Howell DO February 05, 2017 15:09
[2017-02-05 17:14] VITALS: BP 137/80; PULSE 75; RESP 18; TEMP 97.6; O2SAT 94
== END | disposition home or self-care (01) ==
LOC: HSDC 07:03
PROVIDERS: ATTEND Urology
DX: N20.2 Calculus of kidney with calculus of ureter (principal)
CPT/HCPCS: 00918; 52356; 74420; 82370; 88300; 94664; C1726; C1769; C2617; J0690; J1100; J1170; J1580; J1940; J2250; J2270; J2405; J2710; J3010; J7120; J7613; Q9967

== ENCOUNTER 2017-02-12 06:56 | Emergency (ER) | payer OTHER ==
[~2017-02-12] VITALS: Ht 182.9 cm; Wt 102.0 kg
[~2017-02-12 06:56] MED LIST changes: -*HYDROmorphone PF 1 MG VIAL PERIprocedural Use ONLY ONE; -*RESP: ALBUTEROL 2.5 MG/3 ML NEB (PRN) PERIprocedural Use ONLY NEB ONE; -*morphine SULFATE 8 MG/ML PERIprocedure ONLY ONE; -BELLADONNA ALKALOIDS/OPIUM 60 MG SUPP RECTAL ONE; -CHLORHEXIDINE GLUCONATE 2 % 1 PACK (2 CLOTHS) TOPICAL PRN; -DEXAMETHASONE SOD PHOS 4 MG/ML VIAL ONE; -FAMOTIDINE 20 MG/2 ML VIAL ONE; -FUROSEMIDE 40 MG/4 ML VIAL IV PUSH ONE; -FUROSEMIDE 40 MG/4 ML VIAL ONE; -GENTAMICIN INJ 240 MG in SODIUM CHLORIDE 0.9% INJ 100 ML IV SCH; -HYDR-3366 PO; -HYDROmorphone HCL PF 2 MG/ML VIAL IV PRN; -INSULIN HUMAN REGULAR 1,000 UNITS/10 ML VIAL SQ PRN; -IOHEXOL 350 MG/ML 50 ML BTL (for RAD DIAG) ONE; -LACTATED RINGER'S 1000 ML INJ 3,000 ML IV ONE; -LACTATED RINGER'S 1000 ML IV PRN; -METOPROLOL TARTRATE 25 MG TAB PO PRN; -MIDAZOLAM HCL 2 MG/2 ML VIAL ONE; -NEOSTIGMINE 3 MG/3 ML SYR IV ONE; -ONDANSETRON HCL 4 MG/2 ML VIAL IV PUSH ONE; -ONDANSETRON HCL 4 MG/2 ML VIAL IV PUSH PRN; -POVIDONE IODINE 5% (ANTISEPSIS KIT) 4 APPLICATIONS EACH NARE PRN; -PROPOFOL 200 MG/20 ML AMP IV ONE; -ROBA500T PO; -SODIUM CHLORID 0.9% 500 ML IV PRN; -ceFAZolin 1,000 MG/NS 100 ML IV SCH; -fentaNYL CITRATE 250 MCG/5 ML AMP ONE; -oxyCODONE/ACETAMINOPHEN 10 MG/325 MG TAB PO PRN
[2017-02-12 07:00] VITALS: BP 135/90; PULSE 66; RESP 18; TEMP 98.6; O2SAT 99
[2017-02-12] MEDS ORDERED: ONDANSETRON ODT 4 MG TAB PO ONE (07:30)
[2017-02-12] MEDS ORDERED: MORPHINE SULFATE 4 MG/ML INJ IM ONE (07:30)
--- NOTE | 2017-02-12 07:32 | PD ---
HPI Chief Complaint: Fall Time Seen by Provider: 07:15 Travel History International Travel<30 days: No Contact w/Intl Traveler<30days: No Traveled to known affect area: No History of Present Illness HPI patient states that last night he slipped and fell, used hands to break his fall and only partially landed on right flank area, no bruising, but some pain PFSH Past Medical History Heart Rhythm Problems: No Cancer: No Cardiovascular Problems: No High Cholesterol: No Chest Pain: No Congestive Heart Failure: No Endocrine: No Gastrointestinal Disorders: No GERD: Yes Genitourinary: Yes (HX OF KIDNEY STONE 2007) Hepatitis: No Hiatal Hernia: No Hypertension: No Immune Disorder: No Kidney Stones: Yes Musculoskeletal: No Neurologic: No Psychiatric: No Reproductive: No Respiratory: No Seizures: No Ulcer: No Past Surgical History Abdominal Surgery: No AICD: No Body Medical Devices: STENT SOM KIDNEYS Cardiac Surgery: No Ear Surgery: No Endocrine Surgery: No Eye Surgery: No Genitourinary Surgery: Yes (KIDNEY STONE REMOVAL, STENT PLACEMENT) Gynecologic Surgery: No Joint Replacement: No Neurologic Surgery: No Oral Surgery: No Pacemaker: No Thoracic Surgery: No Other Surgery: Yes (STENTS IN SOM KIDNEYS in february 2016) Social History Alcohol Use: Yes Tobacco Use: Yes (OCC) Substance Use: No (admits to used to use drugs in youth) Allergies-Medications (Allergen,Severity, Reaction): Coded Allergies: Penicillin (Verified Allergy, Severe, 01/14/17) UNKNOWN REACTION Reported Meds & Prescriptions Reported Meds & Active Scripts Active Percocet (Oxycodone-Acetaminophen) 10-325 mg Tab 1 Tab PO Q6H PRN Ditropan (Oxybutynin Chloride) 5 Mg Tab 5 Mg PO Q12HR Reported Multiple Vitamin 1 Tab 1 Tab PO DAILY Review of Systems Musculoskeletal: Positive: Pain Physical Exam Narrative GENERAL: SKIN: Warm and dry. HEAD: Atraumatic. Normocephalic. EYES: Pupils equal and round. No scleral icterus. No injection or drainage. ENT: No nasal bleeding or discharge. Mucous membranes pink and moist. NECK: Trachea midline. No JVD. CARDIOVASCULAR: Regular rate and rhythm. RESPIRATORY: No accessory muscle use. Clear to auscultation. Breath sounds equal bilaterally. GASTROINTESTINAL: Abdomen soft, non-tender, nondistended. Hepatic and splenic margins not palpable. MUSCULOSKELETAL: right paraspinal muscle spasm noted, no cva tenderness, no echymosis NEUROLOGICAL: Awake and alert. No obvious cranial nerve deficits. Motor grossly within normal limits. Five out of 5 muscle strength in the arms and legs. Normal speech. PSYCHIATRIC: Appropriate mood and affect; insight and judgment normal. Data Data Last Documented VS Vital Signs Date Time Temp Pulse Resp B/P Pulse Ox O2 Delivery O2 Flow Rate FiO2 02/12/17 07:00 98.6 66 18 135/90 99 Room Air Orders Abdomen, Kub Only (02/12/17 ) Ondansetron Odt (Zofran Odt) (02/12/17 07:30) Morphine Inj (Morphine Inj) (02/12/17 07:30) MDM Medical Decision Making Medical Screen Exam Complete: Yes Emergency Medical Condition: Yes Medical Record Reviewed: Yes Interpretation(s) kub noted and reviewed, no dislodged stent, intact, no breakage...also floating ribs intact, Differential Diagnosis spasm, stent migration, floating rib fracture Narrative Course minor fall, unlikley that theres injury to any internal structures, including stent, will eval placement and integrity with kub, if intact will control pain and d/c home to f/u with urologist Diagnosis Primary Impression: Low back strain Qualified Code: S39.012A - Low back strain, initial encounter Patient Instructions: General Instructions Additional Instructions: please keep appointment with your urologist Dr Howell Med/Other Pt SpecificInfo: Prescription(s) given Scripts Methocarbamol (Robaxin)500 Mg Tab1,000 Mg PO TID #21 TAB Ref 0 Prov:Carlo Bey MD 02/12/17 Hydrocodone-Acetaminophen (Rickman)10-325 Mg Tab1 Tab PO Q4H PRN (PAIN) #20 TAB Ref 0 Prov:Carlo Bey MD 02/12/17 Disposition: 01 DISCHARGE HOME Condition: Stable Carlo Bey MD February 12, 2017 07:32
[2017-02-12] MEDS ORDERED: ROBA500T PO (07:49)
[2017-02-12] MEDS ORDERED: HYDR-3366 PO (07:49)
--- NOTE | 2017-02-12 08:27 | RADRPT ---
EXAM DATE/TIME: 02/12/2017 07:39 [facility] COMPARISON: ABDOMEN KUB ONLY, January 14, 2017, 6:04. INDICATIONS : Right side abdomen pain Evaluate renal stents MEDICAL HISTORY : Renal calculi. SURGICAL HISTORY : bilateral ureteral stents ENCOUNTER: Initial ACUITY: 1 day PAIN SCORE: 9/10 LOCATION: Right Abdomen FINDINGS: The bowel gas pattern appears normal. No free air is identified. No organomegaly is evident. Bilatera l double-J stents are present in the expected position. No right-sided stones are seen. There is a 5 mm stone in the left ureteropelvic junction as well as multiple small stones measuring to 5 mm in th e lower pole on the left. CONCLUSION: Stents in expected position. Macario Moreira MD on February 12, 2017 at 8:24 Board Certified Radiologist. This report was verified electronically.
[2017-02-12 11:27] VITALS: BP 141/58
== END 2017-02-12 11:29 | disposition home or self-care (01) ==
LOC: NEPE 06:56
DX: S39.012A Strain of muscle, fascia and tendon of lower back, initial encounter (principal); K21.9 Gastro-esophageal reflux disease without esophagitis; Z87.442 Personal history of urinary calculi; W19.XXXA Unspecified fall, initial encounter; Y93.9 Activity, unspecified; Y92.9 Unspecified place or not applicable; Y99.8 Other external cause status
CPT/HCPCS: 74000; 96372; 99283; J2270